=== PATIENT | male | born 1985 | race American Indian/Alaskan Native ===

== ENCOUNTER 2020-01-01 15:35 | Emergency (ER) | payer BC ==
[2020-01-01] MEDS ORDERED: ACETAMINOPHEN 325 MG TAB PO ONE (19:17)
--- NOTE | 2020-01-01 19:49 | Emergency Department Report ---
ED Lower Extremity HPI - General Chief Complaint: Extremity Injury, Lower Stated Complaint: LEFT FOOT PAIN Time Seen by Provider: 01/01/20 19:11 Source: patient Mode of arrival: Ambulatory Limitations: No Limitations - History of Present Illness Initial Comments: The patient was evaluated in the emergency department for symptoms described in the history of present illness. He/she was evaluated in the context of the global COVID-19 pandemic, which necessitated consideration that the patient might be at risk for infection with the virus that causes COVID-19. Institutional protocols and algorithms that pertain to the evaluation of patients at risk for COVID-19 are in a state of rapid change based on information released by regulatory bodies including the CDC and federal and state organizations. These policies and algorithms were followed during the patient's care in the emergency department. Please note that these policies, procedures and recommendations changed on a rapid basis. 34-year-old -[place] male reports that he has pain and may have reinjured his left foot x3 days ago. Patient states it is difficult to bear weight and better with rest. Patient is taken nothing for the pain. He does report a history of a Aquino fracture on the same foot many years ago. Patient denies any past medical history currently takes no medications on a daily basis has no known drug allergies. It was noted that patient had elevated blood pressure of 186/118 and will have nursing staff repeat. MD Complaint: foot injury Onset/Timin -: days(s) Injury: Foot: Left (lateral) Type of Injury: inversion Place: home Severity: severe Severity scale (0 -10): 8 Improves With: immobilization Worsens With: weight bearing Associated Symptoms: able to partially bear weight. denies: swelling Treatments Prior to Arrival: other (none) - Related Data Allergies Allergy/AdvReac Type Severity Reaction Status Date / Time No Known Allergies Allergy Unverified 01/01/20 15:37 ED Review of Systems ROS: Stated complaint: LEFT FOOT PAIN Other details as noted in HPI Comment: All other systems reviewed and negative ED Past Medical Hx - Past Medical History Previous Medical History?: No - Surgical History Past Surgical History?: No ED Physical Exam - General Limitations: No Limitations General appearance: alert, in no apparent distress - Head Head exam: Present: atraumatic, normocephalic - Eye Eye exam: Present: normal appearance - ENT ENT exam: Present: mucous membranes moist - Neck Neck exam: Present: full ROM - Respiratory Respiratory exam: Absent: accessory muscle use - Expanded Lower Extremity Exam Left Hip exam: Present: normal inspection Upper Leg exam: Present: normal inspection Knee exam: Present: normal inspection Lower Leg exam: Present: normal inspection Ankle exam: Present: normal inspection Foot/Toe exam: Present: full ROM, tenderness (Fifth metatarsal). Absent: swelling, deformity, crepidus Neuro vascular tendon exam: Present: no vascular compromise - Back Exam Back exam: Present: full ROM - Neurological Exam Neurological exam: Present: alert, oriented X3 - Psychiatric Psychiatric exam: Present: normal affect, normal mood - Skin Skin exam: Present: warm, dry, intact, normal color. Absent: rash ED Course Vital Signs 01/01/20 15:39 Temperature 98.2 F Pulse Rate 93 H Respiratory 20 Rate Blood Pressure 186/118 O2 Sat by Pulse 98 Oximetry ED Lower Extremity MDM - Radiology Data Radiology results: report reviewed [facility] [address] [place] [address] XRay Report Signed Patient: AUDREY ECHEVARRIA MR#: [id number] : 1985 Acct:[id number] Age/Sex: 34 / M ADM Date: 01/01/20 Loc: ED Attending Dr: Ordering Physician: JAYESH WOOD Date of Service: 01/01/20 Procedure(s): XR foot 2V LT Accession Number(s): [id number] cc: JAYESH WOOD Fluoro Time In Minutes: Left foot 2 views INDICATION / CLINICAL INFORMATION: Left foot pain near the Aquino point. COMPARISON: None available. FINDINGS: Only 2 views (AP and lateral) were obtained. There is slight deformity of the proximal fifth metatarsal, probably due to old fracture. I see no acute abnormality. Signer Name: Rambo Cao MD Signed: 01/01/2020 8:07 PM Workstation Name: [id number] Transcribed By: TM Dictated By: Rambo Cao MD Electronically Authenticated By: Rambo Cao MD Signed Date/Time: 01/01/202006 DD/ 04 TD/TT: - Medical Decision Making 51-year-old -[place] male with a history of diabetes presents to the emergency room stating that his pain is increased in his right foot where he has an ulcer. Patient was recently seen here on 12/29/2019 and placed on clindamycin and Tylenol 3. Patient states he did discuss his concerns with his primary care provider and they told him to come to the emergency room. Patient denies any fever chills no nausea no vomiting no drainage or swelling to the site of his wound. Patient denies any recent injury. Patient has multiple allergies of penicillin Reglan ibuprofen and IV contrast dye. X-ray of left foot with completed and shows no acute abnormality does show an old injury. Patient is instructed to take [id number] Tylenol or ibuprofen for pain management and to follow-up with a orthopedic provider if symptoms persist. Critical care attestation.: If time is entered above; I have spent that time in minutes in the direct care of this critically ill patient, excluding procedure time. ED Disposition Clinical Impression: Chronic pain in left foot Disposition: DC-01 TO HOME OR SELFCARE Is pt being admited?: No Does the pt Need Aspirin: No Condition: Stable Additional Instructions: X-ray of left foot with completed and shows no acute abnormality does show an old injury. Patient is instructed to take [id number] Tylenol or ibuprofen for pain management and to follow-up with a orthopedic provider if symptoms persist. Referrals: SHAZIA ZAMORANO MD [Staff Physician] - 3-5 Days Forms: Work/School Release Form(ED)
--- NOTE | 2020-01-01 20:11 | XRay Report ---
Left foot 2 views INDICATION / CLINICAL INFORMATION: Left foot pain near the Aquino point. COMPARISON: None available. FINDINGS: Only 2 views (AP and lateral) were obtained. There is slight deformity of the proximal fifth metatarsal, probably due to old fracture. I see no ac jocelynn abnormality. Signer Name: Rambo Cao MD Signed: 01/01/2020 8:07 PM Workstation Name: [id number]
[2020-01-01] MEDS ORDERED: cloNIDine 0.2 MG TAB PO ONE (20:45)
[2020-01-01 22:53] VITALS: BP 149/100
== END 2020-01-01 22:15 | disposition home or self-care (01) ==
LOC: ED 15:35
DX: M79.672 Pain in left foot (principal); G89.29 Other chronic pain
CPT/HCPCS: 99283